=== PATIENT | female | born 1985 | race Caucasian/White ===

== ENCOUNTER 2017-09-07 07:34 | Day surgery (SDC) | payer OTHER ==
[~2017-09-07 07:34] MED LIST: CEFAZOLIN 1 GM INJ
[2017-09-07 08:44] LABS: ADD MAN DIFF? NO
[2017-09-07 08:46] LABS: BASOPHILS % 0.4 % (0.0-2.0); EOSINOPHILS # 0.1 10^3/ul (0.0-0.5); EOSINOPHILS % 1.3 % (0.0-7.0); HEMATOCRIT 37.8 % (37.0-47.0); HEMOGLOBIN 12.9 g/dl (12.0-16.0); LYMPHOCYTES # 3.8 10^3/ul (0.8-2.9); LYMPHOCYTES % 39.8 % (15.0-51.0); MEAN CORPUSCULAR HEMOGLOBIN 30.4 pg (29.0-33.0); MEAN CORPUSCULAR HGB CONC 34.1 g/dl (32.0-37.0); MEAN CORPUSCULAR VOLUME 88.9 fl (82.0-101.0); MEAN PLATELET VOLUME 9.2 fl (7.4-10.4); MONOCYTE # 0.7 10^3/ul (0.3-0.9); NEUTROPHIL # 4.9 10^3/ul (1.6-7.5); NEUTROPHILS % 51.3 % (39.0-77.0); PLATELET COUNT 395 10^3/UL (140-415); RED BLOOD COUNT 4.25 10^6/ul (4.20-5.40)
[2017-09-07 08:46] LABS: WHITE BLOOD COUNT 9.6 10^3/ul (4.8-10.8)
[2017-09-07] MEDS ORDERED: ONDANSETRON 4 MG INJ IV (09:30)
[2017-09-07] MEDS ORDERED: HYDROmorphONE (0.2 MG/ML) 10ML SYG IV (09:30)
[2017-09-07] MEDS ORDERED: hydrALAzine 20 MG INJ IV (09:30)
[2017-09-07] MEDS ORDERED: FENTAnyl 50 MCG/ML VIAL IV (09:30)
[2017-09-07] MEDS ORDERED: MEPERIDINE 25 MG INJ IV (09:30)
[2017-09-07] MEDS ORDERED: DIPHENHYDRAMINE 50 MG INJ IV (09:30)
[2017-09-07] MEDS ORDERED: LABETALOL HCL 20MG INJ IV (09:30)
[2017-09-07] MEDS ORDERED: PROCHLORPERAZINE 10 MG INJ IV (09:30)
[2017-09-07] MEDS ORDERED: MIDAZOLAM 1 MG/ML 2 ML INJ (09:40)
[2017-09-07] MEDS ORDERED: FENTAnyl 50 MCG/ML VIAL (09:40)
[2017-09-07] MEDS ORDERED: LIDOCAINE 2% (SDV) 5 ML INJ (09:45)
[2017-09-07] MEDS ORDERED: SUCCINYLCHOLINE CHLORIDE 100 MG/5 ML SYG IV (09:45)
[2017-09-07] MEDS ORDERED: PROPOFOL 20 ML (09:45)
[2017-09-07] MEDS ORDERED: KETOROLAC 30 MG INJ (10:20)
[2017-09-07] MEDS ORDERED: DEXAMETHASONE 4 MG/ML 1 ML INJ (10:21)
[2017-09-07] MEDS ORDERED: ONDANSETRON 4 MG INJ (10:21)
[2017-09-07] MEDS: OXYCODONE/ACETAMINOPHEN (5/325) TAB PO (11:14)
== END 2017-09-07 13:03 | disposition home or self-care (01) ==
LOC: SDS 07:34
DX: Z30.2 Encounter for sterilization (principal); I10 Essential (primary) hypertension; E66.9 Obesity, unspecified; Z68.32 Body mass index [BMI] 32.0-32.9, adult
CPT/HCPCS: 58565; 85025; 86850; 86900; 86901